=== PATIENT | female | born 1970 | race Caucasian/White ===

== ENCOUNTER 2017-07-24 21:19 | Emergency (ER) | payer BC ==
[~2017-07-24] VITALS: Ht 165.1 cm; Wt 75.0 kg
[~2017-07-24 21:19] MED LIST: LORA-392 PO; OXYC-360 PO
[2017-07-24 21:23] VITALS: BP 196/106; PULSE 71; RESP 18; TEMP 97.9; O2SAT 100
--- NOTE | 2017-07-24 21:55 | PD ---
HPI Chief Complaint: Hypertension Time Seen by Provider: 21:31 Travel History International Travel<30 days: No Contact w/Intl Traveler<30days: No Traveled to known affect area: No History of Present Illness HPI Patient 46-year-old female presents emergency department for evaluation of elevated blood pressure. Patient states she had a headache earlier in the day and I prompted her to take her blood pressure and she found to be elevated. Initial blood pressure in the emergency department 196/106, declined to 160 systolic without intervention. Patient states her headache resolved, she states is mild, she states there is nothing different than her normal headache for her. She states she has been on lisinopril, states that over the weekend she has not been able to take it because she was very busy but started taking it again today. Denies any chest pain shortness of breath abdominal pain nausea vomiting decreased urination blood in urine. Symptoms are mild, started today, associated with headache, context and associated signs and symptoms as above PFSH Past Medical History Narrative Medical Hypertension, anxiety ?: Not Past Surgical History Surgical History: No Previous Surgery Social History Alcohol Use: No Tobacco Use: Yes Allergies-Medications (Allergen,Severity, Reaction): Coded Allergies: No Known Allergies (Verified Allergy, Mild, 09/27/07) Reported Meds & Prescriptions Reported Meds & Active Scripts Active Ativan (Lorazepam) 0.5 Mg Tab 1-2 Tab PO Q6HPRN Reported Percocet (Oxycodone/Acetaminophen) 5 Mg/325 Mg Tab 1-2 Tab PO Q4HPRN FOR PAIN Review of Systems Except as stated in HPI: all other systems reviewed are Neg Physical Exam Narrative GENERAL: Well-developed and nourished no obvious distress. Appears quite well and nontoxic SKIN: Focused skin assessment warm/dry. HEAD: Atraumatic. Normocephalic. EYES: Pupils equal and round. No scleral icterus. No injection or drainage. ENT: No nasal bleeding or discharge. Mucous membranes pink and moist. NECK: Trachea midline. No JVD. CARDIOVASCULAR: Regular rate and rhythm. No murmur appreciated. RESPIRATORY: No accessory muscle use. Clear to auscultation. Breath sounds equal bilaterally. GASTROINTESTINAL: Abdomen soft, non-tender, nondistended. Hepatic and splenic margins not palpable. MUSCULOSKELETAL: No obvious deformities. No clubbing. No cyanosis. No edema. NEUROLOGICAL: Awake and alert. Cranial nerves II through XII grossly intact and nonfocal, 5 out of 5 strength in all 4 extremities. Cerebellar testing negative, ambulance with an even narrow-base gait. PSYCHIATRIC: Appropriate mood and affect; insight and judgment normal. Data Data Last Documented VS Vital Signs Date Time Temp Pulse Resp B/P (MAP) Pulse Ox O2 Delivery O2 Flow Rate FiO2 07/24/17 21:23 97.9 71 18 196/106 (136) 100 Orders Orders Ed Discharge Order (07/24/17 21:55) MDM Medical Decision Making Medical Screen Exam Complete: Yes Emergency Medical Condition: Yes Differential Diagnosis Headache, elevated blood pressure, chronic hypertension, acute hypertensive emergency unlikely and is been excluded clinically. Narrative Course Patient 46-year-old female presents emergency department for uncomplicated headache which is resolved prior to arrival as well as elevated blood pressure which is improving without intervention in the emergency department. Discussed continue taking her antihypertensives at home, discussed return to ED criteria and follow-up with a primary care physician. No indication further workup at this time Diagnosis Primary Impression: Elevated blood pressure reading Disposition: 01 DISCHARGE HOME Condition: Stable Erik Jalloh MD Jul 24, 2017 21:55
== END 2017-07-24 22:28 | disposition home or self-care (01) ==
LOC: NEPD 21:19
DX: I10 Essential (primary) hypertension (principal); F41.9 Anxiety disorder, unspecified; Z72.0 Tobacco use; Z79.899 Other long term (current) drug therapy
CPT/HCPCS: 99282